=== PATIENT | male | born 1965 | race African-American/Black ===

== ENCOUNTER 2017-03-04 08:24 | Emergency (ER) | payer MEDICAID ==
[~2017-03-04] VITALS: Ht 170.2 cm; Wt 95.0 kg
[2017-03-04 08:26] VITALS: BP 138/75; PULSE 78; RESP 18; TEMP 97.9; O2SAT 96
[2017-03-04] MEDS ORDERED: MOBI15TA PO (09:39)
[2017-03-04] MEDS ORDERED: ROBA750T PO (09:39)
--- NOTE | 2017-03-04 09:39 | PD ---
HPI Chief Complaint: Back/ Neck Pain or Injury Time Seen by Provider: 09:27 Travel History International Travel<30 days: No Contact w/Intl Traveler<30days: No Traveled to known affect area: No History of Present Illness HPI 51-year-old male complains of low back pain and urinary problem. Patient states that he has history of chronic back pain has been seen by a physician outside the area. Patient had MRI done which showed disc problem. Patient has been taking hydrocodone 10 for pain. Patient states that he moved to [facility] recently and awaiting referral to pain management. Patient denies any new injury to the back. Patient states that he has intermittent urinary retention recently but not today. Patient was urinating without any problems this morning. Patient denies any focal weakness and numbness of extremity. Patient denies any fever chills. Patient states that he was seen by personal physician a year ago and prostate checked was okay. PFSH Past Medical History Asthma: No COPD: No Social History Alcohol Use: No Tobacco Use: No Substance Use: No Allergies-Medications (Allergen,Severity, Reaction): Coded Allergies: No Known Allergies (Verified Allergy, Severe, 03/04/17) Uncoded Allergies: NKA (Allergy, Unknown, 11/23/02) NKDA (Allergy, Unknown, 11/23/02) Review of Systems General / Constitutional: No: Fever Eyes: No: Visual changes HENT: No: Headaches Cardiovascular: No: Chest Pain or Discomfort Respiratory: No: Shortness of Breath Gastrointestinal: No: Abdominal Pain Genitourinary: No: Dysuria Musculoskeletal: No: Pain Skin: No Rash Neurologic: No: Weakness Psychiatric: No: Depression Endocrine: No: Polydipsia Hematologic/Lymphatic: No: Easy Bruising Physical Exam Narrative GENERAL: Well-nourished, well-developed patient. SKIN: Focused skin assessment warm/dry. HEAD: Normocephalic. EYES: No scleral icterus. No injection or drainage. NECK: Supple, trachea midline. No JVD or lymphadenopathy. CARDIOVASCULAR: Regular rate and rhythm without murmurs, gallops, or rubs. RESPIRATORY: Breath sounds equal bilaterally. No accessory muscle use. GASTROINTESTINAL: Abdomen soft, non-tender, nondistended. MUSCULOSKELETAL: No cyanosis, or edema. BACK: Mild to moderate tenderness and palpation lumbar area, without obvious deformity. No CVA tenderness. Neurologic exam normal. Data Data Last Documented VS Vital Signs Date Time Temp Pulse Resp B/P (MAP) Pulse Ox O2 Delivery O2 Flow Rate FiO2 03/04/17 08:26 97.9 78 18 138/75 (96) 96 Room Air MDM Medical Decision Making Medical Screen Exam Complete: Yes Emergency Medical Condition: Yes Differential Diagnosis Differential diagnosis including, back pain, intermittent urinary retention, BPH. Narrative Course 51-year-old male with chronic back pain and intermittent symptoms of urinary retention. Diagnosis Primary Impression: Back pain Qualified Codes: M54.5 - Low back pain; G89.29 - Other chronic pain Patient Instructions: General Instructions Additional Instructions: Take medication as directed. Follow-up with local physician. Med/Other Pt SpecificInfo: Prescription(s) given Scripts Methocarbamol (Robaxin) 750 Mg Tab 750 MG PO QID for Muscle Spasm, #80 TAB 0 Refills Prov: Avtar Buenrostro MD 03/04/17 Meloxicam (Mobic) 15 Mg Tab 15 MG PO DAILY for Pain, #30 TAB 0 Refills Prov: Avtar Buenrostro MD 03/04/17 Disposition: 01 DISCHARGE HOME Condition: Stable Avtar Buenrostro MD Mar 04, 2017 09:39
== END 2017-03-04 09:50 | disposition home or self-care (01) ==
LOC: NEPE 08:24
DX: M54.5 Low back pain (principal); G89.29 Other chronic pain
CPT/HCPCS: 99284